=== PATIENT | male | born 1970 | race Caucasian/White ===

== ENCOUNTER → 2022-05-11 | Day surgery (SDC) | payer BC ==
[~2022-05-11] MED LIST: Lactated Ringers 1,000 ML IV SCH; Midazolam 1 MG/ML 2 ML SDV ONE; Propofol 200 MG/20 ML SDV ONE; ePHEDrine 50 MG/ML SDV ONE; fentaNYL 50 MCG/ML SDV ONE
== END ==
LOC: CC.SDS 09:33
PROVIDERS: ATTEND Surgery
DX: Z12.11 Encounter for screening for malignant neoplasm of colon (principal); G47.30 Sleep apnea, unspecified; Z79.899 Other long term (current) drug therapy; R03.0 Elevated blood-pressure reading, without diagnosis of hypertension
CPT/HCPCS: J2250; J2704; J3010; J7120